=== PATIENT | female | born 1990 | race Caucasian/White ===

== ENCOUNTER → 2019-06-17 | Outpatient (CLI) | payer OTHER ==
--- NOTE | 2019-06-17 11:20 | RADIOLOGY REPORT (SQ) ---
EXAM DESCRIPTION: PARANASAL SINUSES COMPLETED DATE/TIME: 06/17/2019 10:02 am REASON FOR STUDY: HEADACHE R51 HEADACHE COMPARISON: None. NUMBER OF VIEWS: Three views. TECHNIQUE: Images of the paranasal sinuses acquired. LIMITATIONS: None. FINDINGS: ORBITS: No fracture. No foreign body. SINUSES: No gross fluid levels. Mild mucosal thickening particularly in the right maxillary sinus. FACIAL BONES: No fracture. OTHER: No other significant finding. IMPRESSION: No acute sinus changes. Probable chronic sinusitis. TECHNICAL DOCUMENTATION: JOB ID: [id number] [employer]- All Rights Reserved Reading location - IP/workstation name: [email or web address]
== END ==
LOC: RAD 09:44
DX: R51 Headache (principal)
CPT/HCPCS: 70220